=== PATIENT | female | born 1945 | race Hispanic/Latino ===

== ENCOUNTER 2018-01-05 13:26 | Emergency (ER) | payer OTHER ==
[2018-01-05 13:57] LABS: BASOPHILS % (AUTO) 1.1 % (0.0-5.0); EOSINOPHILS % (AUTO) 0.9 % (0.0-8.0); HEMATOCRIT 39.1 % (36-48); LYMPHOCYTES % (AUTO) 48.5 % (21.0-51.0); MEAN CORPUSCULAR HEMOGLOBIN 30.3 pg (27.0-33.0); MEAN CORPUSCULAR HGB CONC 34.3 g/dL (32.0-36.0); MEAN CORPUSCULAR VOLUME 88.3 fL (79-99); NEUTROPHILS % (AUTO) 41.5 % (40.0-77.0); PLATELET COUNT (AUTO) 210 K/uL (130-400); RED BLOOD CELL COUNT(AUTO) 4.42 MIL/uL (4.00-5.50); RED CELL DISTRIBUTION WIDTH 12.5 % (11.0-15.5); WHITE BLOOD COUNT (AUTO) 6.2 K/uL (4.8-10.8)
[2018-01-05 14:08] LABS: CREATININE 0.8 mg/dL (0.5-1.5); POTASSIUM 3.6 mmol/L (3.5-5.1)
[2018-01-05] MEDS ORDERED: ASPIRIN 325 MG TABLET ONE (14:09)
[2018-01-05] MEDS ORDERED: NITROGLYCERIN 0.4 MG SL TAB SL ONE (14:09)
[2018-01-05 14:22] LABS: ALBUMIN 4.2 g/dL (3.5-5.0); BILIRUBIN,TOTAL 0.6 mg/dL (0.2-1.0); CREATINE KINASE MB 0.8 ng/mL (0.5-3.6); TOTAL PROTEIN, SERUM 7.9 g/dL (6.0-8.3)
== END 2018-01-05 16:26 | disposition home or self-care (01) ==
LOC: EDH 13:26
DX: R07.89 Other chest pain (principal); E78.5 Hyperlipidemia, unspecified
CPT/HCPCS: 36415; 71045; 80053; 82550; 82553; 84484; 85025; 93005

== ENCOUNTER → 2018-01-17 | Outpatient (CLI) | payer OTHER | END | disposition home or self-care (01) | LOC: OIH 13:30 | PROVIDERS: ATTEND Internal Medicine Cardiovascular Disease | DX: Z13.6 Encounter for screening for cardiovascular disorders (principal) | CPT/HCPCS: 75571 ==

== ENCOUNTER 2018-06-07 10:44 | Day surgery (SDC) | payer OTHER ==
[2018-06-06 11:17] VITALS: BP 157/68
[2018-06-06 11:30] LABS: BASOPHILS % (AUTO) 0.7 % (0.0-5.0); EOSINOPHILS % (AUTO) 1.1 % (0.0-8.0); HEMATOCRIT 39.2 % (36-48); MEAN CORPUSCULAR HEMOGLOBIN 30.6 pg (27.0-33.0); MEAN CORPUSCULAR HGB CONC 33.6 g/dL (32.0-36.0); MEAN CORPUSCULAR VOLUME 90.9 fL (79-99); MONOCYTES % (AUTO) 8.9 % (3.0-13.0); NEUTROPHILS % (AUTO) 45.3 % (40.0-77.0); PLATELET COUNT (AUTO) 208 K/uL (130-400); RED BLOOD CELL COUNT(AUTO) 4.31 MIL/uL (4.00-5.50); RED CELL DISTRIBUTION WIDTH 12.5 % (11.0-15.5); WHITE BLOOD COUNT (AUTO) 4.9 K/uL (4.8-10.8)
[2018-06-06 11:32] LABS: APPEARANCE,URINE Clear (CLEAR); BILIRUBIN,URINE Negative (NEGATIVE); COLOR,URINE Yellow (YELLOW); GLUCOSE, URINE (UA) Negative (NEGATIVE); KETONES,URINE Negative (NEGATIVE); LEUKOCYTE ESTERASE ,URINE Negative (NEGATIVE); NITRATE,URINE Negative (NEGATIVE); OCCULT BLOOD,URINE Negative (NEGATIVE); PH,URINE 7.5 (5.0-8.0); PROTEIN,URINE Negative (NEGATIVE); UROBILINOGEN,URINE 0.2 mg/dL (0.2-1.0)
[2018-06-06 11:40] LABS: CREATININE 0.8 mg/dL (0.5-1.5)
[2018-06-06 11:55] LABS: INR 0.96 (0.85-1.15); PARTIAL THROMBOPLASTIN TIME 33.8 SEC (26.3-35.5); PROTHROMBIN TIME 10.1 SEC (9.6-11.6)
[2018-06-07] VITALS (9 sets, daily range): BP systolic 115–133; BP diastolic 62–78
[~2018-06-07] VITALS: Ht 160 cm; Wt 69.2 kg
[~2018-06-07 10:44] MED LIST: ASPI-1181 PO; PANT40TA25 PO; PITA2TAB2 PO
[2018-06-07] MEDS ORDERED: SODIUM CHLORIDE 0.9% 1000ML 1,000 ML IV ONE (12:03)
[2018-06-07] MEDS ORDERED: NITROGLYCERIN 5 MG/ML 10 ML VIAL IV ONE (12:55)
[2018-06-07] MEDS ORDERED: LIDOCAINE HCL-MPF 2% 5ML VIAL ONE (12:55)
[2018-06-07] MEDS ORDERED: SODIUM BICARB 50MEQ 50ML VIAL ONE (13:01)
[2018-06-07] MEDS ORDERED: IOHEXOL 350 MG/ML 100ML INFUS..BTL IV ONE (13:04)
[2018-06-07] MEDS ORDERED: IOHEXOL-350 50ML VIAL IV ONE (13:04)
[2018-06-07] MEDS ORDERED: ATROPINE SULFATE 0.1 MG/ML 10 ML SYG IVP ONE (13:33)
[2018-06-07] MEDS ORDERED: SODIUM CHLORIDE 0.9% 1000ML 1,000 ML IV SCH (14:00)
== END 2018-06-07 17:55 | disposition home or self-care (01) ==
LOC: DAH 10:44
PROVIDERS: ATTEND Internal Medicine Cardiovascular Disease
DX: I25.119 Atherosclerotic heart disease of native coronary artery with unspecified angina pectoris (principal); I10 Essential (primary) hypertension; E78.5 Hyperlipidemia, unspecified; K80.20 Calculus of gallbladder without cholecystitis without obstruction; Z79.899 Other long term (current) drug therapy; Z79.82 Long term (current) use of aspirin; Z82.49 Family history of ischemic heart disease and other diseases of the circulatory system; Z98.890 Other specified postprocedural states; Z83.3 Family history of diabetes mellitus; Z79.01 Long term (current) use of anticoagulants
CPT/HCPCS: 36415; 71045; 80048; 81003; 85025; 85610; 85730; 93005; 93458; A4606; C1760; C1894; J0461; J1644; J3490 ×3; J7030; Q9965; Q9967 ×2

== ENCOUNTER → 2020-03-26 | Outpatient (CLI) | payer OTHER ==
[~2020-03-26] MED LIST changes: -ASPI-1181 PO; +ASPI-1443 PO
== END | disposition home or self-care (01) ==
LOC: SHCH 13:27
PROVIDERS: ATTEND Internal Medicine Cardiovascular Disease
DX: R01.1 Cardiac murmur, unspecified (principal)
CPT/HCPCS: 93306; 93356

== ENCOUNTER → 2020-04-23 | Outpatient (CLI) | payer OTHER | END | disposition home or self-care (01) | LOC: SHCH 07:49 | PROVIDERS: ATTEND Internal Medicine Cardiovascular Disease | DX: I65.23 Occlusion and stenosis of bilateral carotid arteries (principal); I71.4 Abdominal aortic aneurysm, without rupture; R01.1 Cardiac murmur, unspecified | CPT/HCPCS: 93880; 93978 ==

== ENCOUNTER 2021-06-20 13:45 | Observation (INO) | payer MEDICARE ==
[~2021-06-20] VITALS: Ht 162.6 cm; Wt 76.3 kg
[2021-06-20 10:23] LABS: BASOPHILS % (AUTO) 0.7 % (0.0-5.0); EOSINOPHILS % (AUTO) 3.5 % (0.0-8.0); HEMATOCRIT 39.5 % (36-48); LYMPHOCYTES % (AUTO) 40.5 % (21.0-51.0); MEAN CORPUSCULAR HEMOGLOBIN 30.1 pg (27.0-33.0); MEAN CORPUSCULAR HGB CONC 32.7 g/dL (32.0-36.0); MEAN CORPUSCULAR VOLUME 92.3 fL (79-99); MONOCYTES % (AUTO) 9.5 % (3.0-13.0); NEUTROPHILS % (AUTO) 45.6 % (40.0-77.0); PLATELET COUNT (AUTO) 205 K/uL (130-400); RED BLOOD CELL COUNT(AUTO) 4.28 MIL/uL (4.00-5.50); RED CELL DISTRIBUTION WIDTH 12.4 % (11.0-15.5); WHITE BLOOD COUNT (AUTO) 5.5 K/uL (4.8-10.8)
[2021-06-20 10:25] LABS: APPEARANCE,URINE Clear (CLEAR); BILIRUBIN,URINE Negative (NEGATIVE); COLOR,URINE Yellow (YELLOW); GLUCOSE, URINE (UA) Negative (NEGATIVE); KETONES,URINE Negative (NEGATIVE); LEUKOCYTE ESTERASE ,URINE Small (NEGATIVE); NITRATE,URINE Negative (NEGATIVE); OCCULT BLOOD,URINE Negative (NEGATIVE); PH,URINE 5.5 (5.0-8.0); PROTEIN,URINE Negative (NEGATIVE)
[2021-06-20 10:33] LABS: PROTHROMBIN TIME 10.9 SEC (9.6-11.6)
[2021-06-20 10:36] LABS: CREATININE 0.7 mg/dL (0.5-1.5)
[2021-06-20 10:42] LABS: RBC,URINE None Seen /HPF (0-1); WBC,URINE 0-1 /HPF (0-1)
[2021-06-20 10:43] LABS: BACTERIA,URINE None Seen /HPF (None Seen)
[2021-06-20 10:50] VITALS: BP 163/74
[~2021-06-20 13:45] MED LIST changes: -PANT40TA25 PO; -PITA2TAB2 PO
[2021-06-23] MEDS ORDERED: CEFAZOLIN SODIUM 1 GM VIAL IVP SCH (06:00)
[2021-06-27] MEDS ORDERED: PANT40TA54 PO (10:01)
[2021-06-27] MEDS ORDERED: OMEGA 3 PO (10:01)
[2021-06-27] MEDS ORDERED: LOVA10TA2 PO (10:01)
[2021-06-27] MEDS ORDERED: IBUP-2070 PO (10:01)
[2021-06-27] MEDS ORDERED: VITAMIN D3 PO (10:01)
[2021-06-30] VITALS (18 sets, daily range): BP systolic 111–164; BP diastolic 51–87
[2021-06-30] MEDS ORDERED: LACTATED RINGERS 1000ML 1,000 ML IV ONE (10:14)
[2021-06-30] MEDS: CEFAZOLIN SODIUM 1 GM VIAL ONE ×2 (10:14→16:45)
[2021-06-30] MEDS ORDERED: TRANEXAMIC ACID 1000MG/10ML ONE (15:28)
[2021-06-30] MEDS ORDERED: CEFAZOLIN SODIUM 1 GM VIAL ONE ×2 (15:28→22:12)
[2021-06-30] MEDS ORDERED: ROPIVACAINE 0.5% 5MG/ML 30ML IJ ONE (15:51)
[2021-06-30] MEDS ORDERED: ONDANSETRON 4MG INJ ONE (15:52)
[2021-06-30] MEDS ORDERED: KETAMINE 50MG/ML SYRINGE 50 MG/ML DISP.SYRIN IV ONE (15:52)
[2021-06-30] MEDS ORDERED: LIDOCAINE PF 100MG/5ML (2%) SYRINGE 5ML ONE (15:52)
[2021-06-30] MEDS ORDERED: MIDAZOLAM HCL 1 MG/ML 2ML VIAL ONE (15:53)
[2021-06-30] MEDS ORDERED: ROCURONIUM 10MG/1ML SYR 10 MG/ML ML ONE ×2 (15:53→17:10)
[2021-06-30] MEDS ORDERED: PROPOFOL 10 MG/ML 20ML VIAL IV ONE (15:53)
[2021-06-30] MEDS: TRANEXAMIC ACID 1000MG/10ML ONE ×2 (16:50→18:17)
[2021-06-30] MEDS ORDERED: DEXAMETHASONE SOD PHOSPHATE 10MG/ML 1ML VIAL ONE (18:14)
[2021-06-30] MEDS ORDERED: NEOSTIGMINE 5MG/5ML SYR IV ONE (18:14)
[2021-06-30] MEDS ORDERED: GLYCOPYRROLATE 1 MG/5 ML SYRINGE ONE (18:14)
[2021-06-30] MEDS ORDERED: KCL 20 MEQ ERTAB PO PRN (18:30)
[2021-06-30] MEDS ORDERED: ONDANSETRON 4MG INJ IVP PRN (18:30)
[2021-06-30] MEDS ORDERED: FERROUS FUMARATE 324 MG TABLET PO PRN (18:30)
[2021-06-30] MEDS: ACETAMINOPHEN 500 MG TABLET PO SCH (18:30)
[2021-06-30] MEDS ORDERED: KETOROLAC 15MG/ML VIAL (15MG/ML) IV PRN (18:30)
[2021-06-30] MEDS ORDERED: POTASSIUM CHLORIDE 10% ELIXIR 20 MEQ/15 ML UDCUP PO PRN (18:30)
[2021-06-30] MEDS ORDERED: OXYCODONE HCL 5 MG TAB PO PRN (18:30)
[2021-06-30] MEDS: 0.9%NACL 1000ML 1,000 ML IV SCH ×2 (18:30→21:08)
[2021-06-30] MEDS ORDERED: POTASSIUM CHLORIDE 20MEQ/100ML 100 ML IV PRN (18:30)
[2021-06-30] MEDS ORDERED: LIDOCAINE HCL-MPF 1% 2ML VIAL IV PRN (18:30)
[2021-06-30] MEDS ORDERED: TRAMADOL HCL 50 MG TABLET PO PRN (18:30)
[2021-06-30] MEDS ORDERED: DiphenhydrAMINE HCL 50 MG/ML VIAL IVP PRN (18:30)
[2021-06-30] MEDS ORDERED: CALCIUM CARB 500MG PO PRN (18:30)
[2021-06-30] MEDS ORDERED: TEMAZEPAM 15 MG CAPSULE PO PRN (18:30)
[2021-06-30] MEDS ORDERED: FENTANYL CITRATE PF 50 MCG/1 ML 2ML VIAL ONE (19:28)
[2021-06-30] MEDS ORDERED: PANTOPRAZOLE 40 MG TAB DR ONE (20:32)
[2021-06-30] MEDS: LOVASTATIN 10 MG PO SCH (21:00)
[2021-06-30] MEDS: CELECOXIB 200 MG CAP PO SCH (21:04)
[2021-06-30] MEDS: PREGABALIN 25 MG CAP PO SCH (21:04)
[2021-06-30] MEDS: ASPIRIN 81 MG EC TAB PO SCH (21:04)
[2021-06-30] MEDS: OXYCODONE HCL 5 MG TAB PO PRN (22:15)
[2021-06-30] MEDS: CEFAZOLIN SODIUM 1 GM VIAL IVP SCH (22:15)
[2021-07-01 00:05] VITALS: BP 97/51
[2021-07-01] MEDS: ACETAMINOPHEN 500 MG TABLET PO SCH ×3 (02:26→20:04)
[2021-07-01 04:04] VITALS: BP 111/49
[2021-07-01 04:33] LABS: HEMATOCRIT 35.5 % (36-48); MEAN CORPUSCULAR HGB CONC 32.7 g/dL (32.0-36.0); MEAN CORPUSCULAR VOLUME 91.7 fL (79-99); RED BLOOD CELL COUNT(AUTO) 3.87 MIL/uL (4.00-5.50); WHITE BLOOD COUNT (AUTO) 9.4 K/uL (4.8-10.8)
[2021-07-01 04:53] LABS: CREATININE 0.8 mg/dL (0.5-1.5)
[2021-07-01] MEDS: CEFAZOLIN SODIUM 1 GM VIAL IVP SCH (05:27)
[2021-07-01] MEDS: 0.9%NACL 1000ML 1,000 ML IV SCH (05:30)
[2021-07-01] MEDS: PREGABALIN 25 MG CAP PO SCH ×2 (07:50→20:02)
[2021-07-01] MEDS: CELECOXIB 200 MG CAP PO SCH ×2 (07:50→20:02)
[2021-07-01] MEDS: PANTOPRAZOLE 40 MG TAB DR PO SCH (07:51)
[2021-07-01] MEDS: POLYETHYLENE GLYCOL 3350 17 GM POWD.PACK PO SCH (07:51)
[2021-07-01] MEDS: OXYCODONE HCL 5 MG TAB PO PRN (07:51)
[2021-07-01] MEDS: ASPIRIN 81 MG EC TAB PO SCH ×2 (07:51→20:04)
[2021-07-01 08:00] VITALS: BP 123/53
[2021-07-01 12:00] VITALS: BP 111/62
[2021-07-01 16:00] VITALS: BP 124/63
[2021-07-01 20:04] VITALS: BP 119/57
[2021-07-01] MEDS: LOVASTATIN 10 MG PO SCH (20:15)
[2021-07-02 00:08] VITALS: BP 118/55
[2021-07-02] MEDS: OXYCODONE HCL 5 MG TAB PO PRN (01:24)
[2021-07-02] MEDS: ACETAMINOPHEN 500 MG TABLET PO SCH ×2 (02:49→13:35)
[2021-07-02 04:08] VITALS: BP 124/79
[2021-07-02 07:53] VITALS: BP 137/59
[2021-07-02] MEDS: POLYETHYLENE GLYCOL 3350 17 GM POWD.PACK PO SCH (08:37)
[2021-07-02] MEDS: PANTOPRAZOLE 40 MG TAB DR PO SCH (08:37)
[2021-07-02] MEDS: ASPIRIN 81 MG EC TAB PO SCH (08:37)
[2021-07-02] MEDS: PREGABALIN 25 MG CAP PO SCH (08:37)
[2021-07-02] MEDS: CELECOXIB 200 MG CAP PO SCH (08:37)
[2021-07-02 11:20] VITALS: BP 131/68
[2021-07-02 16:17] VITALS: BP 138/51
[2021-07-02] MEDS ORDERED: AEC81 PO (16:32)
[2021-07-02] MEDS ORDERED: HYDR-4060 PO (16:32)
[2021-07-03] MEDS ORDERED: METO-296 PO (05:12)
[2021-07-03] MEDS ORDERED: BISACODYL 10 MG SUPP.RECT RC PRN (18:30)
== END 2021-07-02 18:00 | disposition home or self-care (01) ==
LOC: EDSTATUS 13:45 → DAHIP 06-30 10:06 → INTOOBSV 06-30 10:06 → 4AH 06-30 18:26
PROVIDERS: ADMIT Orthopaedic Surgery; ATTEND Orthopaedic Surgery
DX: M17.0 Bilateral primary osteoarthritis of knee (principal); Z20.822 Contact with and (suspected) exposure to COVID-19; E78.5 Hyperlipidemia, unspecified; F41.9 Anxiety disorder, unspecified; Z79.899 Other long term (current) drug therapy
CPT/HCPCS: 27447; 36415 ×2; 80048 ×2; 81001; 85025; 85027; 85610; 87088; 87635; 87641; 96361 ×3; 96374; 96375; 96376; 97039 ×4; 97116 ×4; 97161; 97530 ×4; A4215; A4216; A4221; A4222; A4223 ×2; A4649 ×4; A4663; A4930 ×3; A5120; A9272; C1776; G0378 ×45; J0690 ×4; J1100; J1885; J2001; J2250; J2405 ×2; J2704; J2710; J2795; J3010; J3490 ×4; J7120 ×2

== ENCOUNTER 2021-07-03 04:34 | Emergency (ER) | payer MEDICARE ==
[~2021-07-03] VITALS: Ht 162.6 cm; Wt 74.8 kg
[~2021-07-03 04:34] MED LIST changes: +AEC81 PO; -ASPI-1443 PO; +HYDR-4060 PO; +LOVA10TA2 PO; +OMEGA 3 PO; +PANT40TA54 PO; +VITAMIN D3 PO
[2021-07-03 05:05] VITALS: BP 120/78
[2021-07-03] MEDS ORDERED: METO-296 PO (05:12)
[2021-07-03] MEDS ORDERED: FAMOTIDINE 20MG TAB PO ONE (05:30)
[2021-07-03] MEDS ORDERED: LIDOCAINE HCL 2% VISCOUS 15 ML UDCUP PO ONE (05:30)
[2021-07-03] MEDS ORDERED: MAG/ALUM/SIMETH 30 ML UDCUP PO ONE (05:30)
[2021-07-03] MEDS ORDERED: METOCLOPRAMIDE 10 MG/2 ML VIAL IM ONE (05:30)
== END 2021-07-03 05:31 | disposition home or self-care (01) ==
LOC: EDH 04:34
DX: R13.10 Dysphagia, unspecified (principal); R10.13 Epigastric pain; Z79.1 Long term (current) use of non-steroidal anti-inflammatories (NSAID); Z79.82 Long term (current) use of aspirin; Z79.899 Other long term (current) drug therapy; Z96.651 Presence of right artificial knee joint
CPT/HCPCS: 96372; 99284; J2765

== ENCOUNTER → 2022-05-12 | Outpatient (CLI) | payer MEDICARE ==
[~2022-05-12] MED LIST changes: +MAG-55 PO; +METO-296 PO
== END | disposition home or self-care (01) ==
LOC: SHCH 12:26
PROVIDERS: ATTEND Internal Medicine Cardiovascular Disease
DX: I11.0 Hypertensive heart disease with heart failure (principal); I50.32 Chronic diastolic (congestive) heart failure; I25.10 Atherosclerotic heart disease of native coronary artery without angina pectoris; I35.8 Other nonrheumatic aortic valve disorders
CPT/HCPCS: 93306

== ENCOUNTER → 2022-05-21 | Outpatient (CLI) | payer MEDICARE | END | disposition home or self-care (01) | LOC: SHCH 15:04 | PROVIDERS: ATTEND Internal Medicine Cardiovascular Disease | DX: I65.23 Occlusion and stenosis of bilateral carotid arteries (principal) | CPT/HCPCS: 93880 ==

== ENCOUNTER → 2022-05-26 | Outpatient (CLI) | payer MEDICARE ==
[~2022-05-26] MED LIST changes: +REGADENOSON 0.4 MG/5 ML PF SYG IVP SCH
== END | disposition home or self-care (01) ==
LOC: SHCH 08:03
PROVIDERS: ATTEND Internal Medicine Cardiovascular Disease
DX: I11.0 Hypertensive heart disease with heart failure (principal); I50.32 Chronic diastolic (congestive) heart failure
CPT/HCPCS: 78452; 96374; 93017; J2785; A9500 ×2

== ENCOUNTER → 2023-01-28 | Outpatient (CLI) | payer MEDICARE ==
[~2023-01-28] MED LIST changes: -REGADENOSON 0.4 MG/5 ML PF SYG IVP SCH
== END | disposition home or self-care (01) ==
LOC: RAH 08:25
PROVIDERS: ATTEND Nurse Practitioner Family
DX: Z12.31 Encounter for screening mammogram for malignant neoplasm of breast (principal); N64.4 Mastodynia
CPT/HCPCS: 77066

== ENCOUNTER → 2025-05-23 | Outpatient (CLI) | payer MEDICARE | END | disposition home or self-care (01) | LOC: RAH 14:24 | PROVIDERS: ATTEND Nurse Practitioner Family | DX: Z12.31 Encounter for screening mammogram for malignant neoplasm of breast (principal) | CPT/HCPCS: 77067 ==